=== PATIENT | female | born 1955 | race American Indian/Alaskan Native ===

== ENCOUNTER 2018-11-17 15:50 | Emergency (ER) | payer MEDICAID ==
[2018-11-17 15:50] VITALS: BMI 37.0
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
[2018-11-17 16:55] VITALS: BP 120/69; PULSE 70; RESP 17; TEMP 97.9; O2SAT 100
[2018-11-18] MEDS ORDERED: Albuterol-Ipratrop 3 mg / 0.5 (3 ml) UD ONE (03:59)
== END 2018-11-17 17:35 | disposition home or self-care (01) ==
LOC: H.ER 15:50
DX: F25.9 Schizoaffective disorder, unspecified (principal); F17.200 Nicotine dependence, unspecified, uncomplicated; Z88.8 Allergy status to other drugs, medicaments and biological substances; E78.00 Pure hypercholesterolemia, unspecified; Z00.8 Encounter for other general examination

== ENCOUNTER 2018-11-18 00:33 | Emergency (ER) | payer MEDICAID ==
[2018-11-18 00:33] VITALS: BMI 37.0
[2018-11-18] MEDS ORDERED: Sodium Chloride 0.9% 1,000 ML IV STA (03:02)
[2018-11-18] MEDS ORDERED: Albuterol-Ipratrop 3 mg / 0.5 (3 ml) UD INH STA (03:04)
--- NOTE | 2018-11-18 03:39 | ED PDOC ---
HPI: Psych/Substance Abuse Time Seen by Provider: 11/18/18 02:57 Chief Complaint (Nursing): Psychiatric Evaluation Chief Complaint (Provider): Psychiatric Evaluation History Per: Patient History/Exam Limitations: no limitations Current Symptoms Are (Timing): Still Present Suicide/Self Injury Attempted (Context): None Modifying Factor(s): None Associated Symptoms: Other (auditory hallucinations) Additional Complaint(s): 62 year old female with a history of psychotic disorder presents to the ED via [facility] for evaluation of auditory hallucinations. Patient reports she is hearing voices and was kicked out of the homeless custodial. She states that she was admitted to [facility] two weeks ago and claims that she lost her Zyprexa and has not refilled it. Denies homicidal and suicidal ideation. PMD: none provided Past Medical History Reviewed: Historical Data, Nursing Documentation, Vital Signs Vital Signs: Last Vital Signs Temp 97.4 F L 11/18/18 01:48 Pulse 80 11/18/18 01:48 Resp 16 11/18/18 01:48 BP 100/55 L 11/18/18 01:48 Pulse Ox 99 11/18/18 01:48 Primary Care Provider: FAMILY PROVIDER,NO - Medical History PMH: Hypercholesterolemia Denies: Diabetes, Hepatitis, HIV, HTN, Seizures, Sexually Transmitted Disease - Surgical History Surgical History: No Surg Hx - Family History Family History: States: Unknown Family Hx - Social History Current smoker - smoking cessation education provided: Yes Drugs: Other (K2) - Home Medications Home Medications: Ambulatory Orders Medication Instructions Recorded Ibuprofen [Motrin] 600 mg PO Q6H PRN #20 tab 11/13/18 - Allergies Allergies/Adverse Reactions: Allergies Allergy/AdvReac Type Severity Reaction Status Date / Time haloperidol [From Haldol] Allergy PAIN Verified 11/17/18 16:11 Review of Systems ROS Statement: Except As Marked, All Systems Reviewed And Found Negative Psych: Positive for: Other (auditory hallucinations) Physical Exam - Reviewed Nursing Documentation Reviewed: Yes Vital Signs Reviewed: Yes - Physical Exam Appears: Positive for: No Acute Distress Head Exam: Positive for: ATRAUMATIC, NORMAL INSPECTION, NORMOCEPHALIC Skin: Positive for: Normal Color, Warm, Dry Eye Exam: Positive for: EOMI, Normal appearance, PERRL Neck: Positive for: Normal, Painless ROM, Supple Cardiovascular/Chest: Positive for: Regular Rate, Rhythm. Negative for: Murmur Respiratory: Positive for: Normal Breath Sounds. Negative for: Respiratory Distress Gastrointestinal/Abdominal: Positive for: Normal Exam, Soft. Negative for: Tenderness Back: Positive for: Normal Inspection. Negative for: L CVA Tenderness, R CVA Tenderness Extremity: Positive for: Normal ROM (x 4). Negative for: Deformity Neurological/Psych: Positive for: Awake, Alert, Normal Tone, Oriented (x 3). Negative for: Motor/Sensory Deficits - ECG O2 Sat by Pulse Oximetry: 99 (RA) Pulse Ox Interpretation: Normal Medical Decision Making Medical Decision Makin:02 Impression: 62 year old female with auditory hallucinations Initial Plan: --EKG --Alcohol serum --BNP --CMP --CBC --CXR --UDS --Troponin --Crisis evaluation --Urine dip --UA --Duoneb 3 ml INH --Peak flow pre/post --NS IV 1,000 mls --Toradol 15 mg IVP --Zyprexa 10 mg PO --Influenza AB 04:33 Patient has refused all labs, imaging and medications at present time. States she only wants prescription for Zyprexa. Patient was seen and evaluated by crisis. Diagnosis is schizoaffective disorder as per Dr. Rodriguez. Patient is medically and psychiatrically cleared for discharge. Scribe Attestation: Documented by Sandra Smallwood, acting as a scribe Robbie Brumfield MD Provider Scribe Attestation: All medical record entries made by the Scribe were at my direction and personally dictated by me. I have reviewed the chart and agree that the record accurately reflects my personal performance of the history, physical exam, medical decision making, and the department course for this patient. I have also personally directed, reviewed, and agree with the discharge instructions and disposition Disposition - Clinical Impression Clinical Impression: Schizoaffective disorder - Patient ED Disposition Is Patient to be Admitted: No - Disposition Disposition: Routine/Home Disposition Time: 04:33 Condition: STABLE Instructions: Schizoaffective Disorder Forms: [employer] (Hebrew)
[2018-11-18 05:52] VITALS: BP 113/71; PULSE 84; RESP 17; TEMP 98
--- NOTE | 2018-11-18 07:49 | RAD ---
Date of service: 11/18/2018 HISTORY: chest pain COMPARISON: Left ribs with chest radiograph 11/13/2018. TECHNIQUE: 1 view obtained. FINDINGS: LUNGS: No active pulmonary disease. PLEURA: No significant pleural effusion identified, no pneumothorax apparent. CARDIOVASCULAR: No aortic atherosclerotic calcification present. Mild cardiomegaly again evident. No pulmonary vascular congestion. OSSEOUS STRUCTURES: No significant abnormalities. VISUALIZED UPPER ABDOMEN: Normal. OTHER FINDINGS: None. IMPRESSION: Stable mild cardiomegaly. No pulmonary vascular congestion. No acute pulmonary disease appreciable.
--- NOTE | 2018-11-18 09:18 | CARD ---
APPROVED REPORT Date of service: 11/18/2018 EKG Measurement Heart [id number] <Conclusion> Normal sinus rhythm Normal ECG
[2018-11-18 22:16] VITALS: O2SAT 99
== END 2018-11-18 06:09 | disposition home or self-care (01) ==
LOC: H.ER 00:33
DX: F25.9 Schizoaffective disorder, unspecified (principal); Z59.0 Homelessness; F17.200 Nicotine dependence, unspecified, uncomplicated; Z88.8 Allergy status to other drugs, medicaments and biological substances; Z86.59 Personal history of other mental and behavioral disorders